=== PATIENT | male | born 1945 | race Caucasian/White ===

== ENCOUNTER 2021-09-08 14:25 | Emergency (ER) | payer MEDICARE, SELFPAY ==
[2021-09-08 14:36] VITALS: BP 125/69; PULSE 64; RESP 16; TEMP 36.9; O2SAT 99
--- NOTE | 2021-09-08 14:46 | ED.URI ---
HPI - URI/Sore Throat General Chief Complaint: Upper Respiratory Infection Stated Complaint: scratchy throat sneeze cough Time Seen by Provider: 09/08/21 14:28 Source: patient and RN notes reviewed History of Present Illness HPI Narrative: Patient is a 75-year-old male who presents the urgent care with complaints of bilateral cerumen impaction with decreased hearing. Patient also reports of a slight cough at night, and scratchy throat. Patient states that he has been using CBD oil and taking vitamin C and vitamin D for his symptoms. Denies of any recent COVID exposures. Denies any fevers. No other acute complaints. No acute distress noted. Patient aware of the plan of care. Some parts of this dictation were generated by voice recognition software and may contain typographical and/or grammatical inaccuracies. Related Data Home Medications Medication Instructions Recorded Confirmed lovastatin 40 mg PO DAILY 09/08/21 09/08/21 Allergies Allergy/AdvReac Type Severity Reaction Status Date / Time No Known Allergies Allergy Verified 09/08/21 14:34 Review of Systems Review of Systems: CONSTITUTIONAL: Denies fever, chills, or sweats. EYES: Denies visual changes, redness, or discharge. ENT: Denies rhinorrhea, congestion, sore throat, or otalgia. CARDIOVASCULAR: Denies chest pain, palpitations, or edema. RESPIRATORY: Denies cough or dyspnea. GASTROINTESTINAL: Denies abdominal pain, nausea, vomiting, or diarrhea. GENITOURINARY: Denies dysuria or hematuria. SKIN: Denies rash or itching. MUSCULOSKELETAL: Denies back pain, joint pain, or myalgia. NEUROLOGIC: Denies headache, numbness, or weakness. PSYCHIATRIC: Denies anxiety or depression. All other systems reviewed are negative, except as documented in HPI. [facility] Family History Family History Mother Diabetes mellitus, Onset Age: 87 Hypertension, Onset Age: 87 Cerebrovascular accident, Onset Age: 87 Sibling Family history of chronic obstructive pulmonary disease, Onset Age: 62 Father Family history of emphysema, Onset Age: 72 Social History Social History (Updated 12/19/20 @ 10:46 by Melony Mccauley CMA) Smoking packs per day: 1 Smoking cigarettes per day: 20.0 Years smoked: 30 Smoking pack-years: 30.00 Smoking status: Former smoker Smokeless tobacco user: chewing tobacco Smoking end date: 08/18/06 Comments At the time of my signature, I reviewed and agree with the nursing past medical, surgical, social, and family history. There is no relevant family history pertinent to the patient complaint. Exam Narrative: GENERAL: This is a well-nourished, well-developed patient, in no apparent distress. HEAD: normocephalic, atraumatic. EYES: PERRL. Sclera clear/white. Vision is grossly intact. EARS: External ears normal, unable to visualize bilateral TMs due to cerumen impaction. Hearing grossly intact. NOSE: External nose normal with no obvious nasal discharge, nares without redness, clear rhinorrhea. THROAT: Mucous membranes moist, posterior pharynx clear. NECK: Neck supple CARDIOVASCULAR: Regular rate and rhythm RESPIRATORY: Clear to auscultation. Breath sounds equal bilaterally. No wheezes, rales, or rhonchi. SKIN: warm, intact with no suspicious lesions or rash, good texture and turgor. NEURO: awake, alert, and oriented to person, place and time. There were no obvious focal neurologic abnormalities. EXTREMITIES: No clubbing, cyanosis, or edema. Course Course Level of Care: Express Care Visit Vital Signs Vital signs: Vital Signs Temperature 98.4 F 09/08/21 14:36 Pulse Rate 64 09/08/21 14:36 Respiratory Rate 16 09/08/21 14:36 Blood Pressure 125/69 09/08/21 14:36 Pulse Oximetry 99 09/08/21 14:36 Temperature 98.4 F 09/08/21 14:36 Pulse Rate 64 09/08/21 14:36 Respiratory Rate 16 09/08/21 14:36 Blood Pressure 125/69 09/08/21 14
== END 2021-09-08 15:20 | disposition home or self-care (01) ==
PROVIDERS: Emergency Provider Nurse Practitioner Family; PCP Internal Medicine
DX: H61.23 Impacted cerumen, bilateral (principal); R05.9 Cough, unspecified; Z87.891 Personal history of nicotine dependence; E78.00 Pure hypercholesterolemia, unspecified
CPT/HCPCS: 69210; 99213; G0463

== ENCOUNTER 2022-01-09 11:10 | Emergency (ER) | payer MEDICARE, SELFPAY ==
--- NOTE | 2022-01-09 11:13 | ED.WOUNDLAC ---
HPI - Wound/Laceration General Chief Complaint: Skin/Abscess/Foreign Body Stated Complaint: Left hand finger lac Time Seen by Provider: 01/09/22 11:13 Source: patient and RN notes reviewed History of Present Illness HPI narrative: Patient is a 76-year-old male who presents the urgent care with complaints of a laceration to the left index finger. Patient states that occurred on Friday and he cut it with a knife while trying to clean out the piece of plastic from a shukla. Patient has not had any intervention. States that he is concerned about the area near the knuckle it is not healing well . Patient has been keeping it covered with a bandage. Denies of any fever, nausea or vomiting. Patient is right-hand dominant. No other acute complaints. No acute distress noted. Patient aware of the plan of care. Some parts of this dictation were generated by voice recognition software and may contain typographical and/or grammatical inaccuracies. Related Data Home Medications Medication Instructions Recorded Confirmed lovastatin 40 mg tablet 40 mg PO DAILY 09/08/21 12/27/21 Allergies Allergy/AdvReac Type Severity Reaction Status Date / Time No Known Allergies Allergy Verified 12/27/21 11:12 Review of Systems Review of Systems: CONSTITUTIONAL: Denies fever, chills, or sweats. EYES: Denies visual changes, redness, or discharge. ENT: Denies rhinorrhea, congestion, sore throat, or otalgia. CARDIOVASCULAR: Denies chest pain, palpitations, or edema. RESPIRATORY: Denies cough or dyspnea. GASTROINTESTINAL: Denies abdominal pain, nausea, vomiting, or diarrhea. GENITOURINARY: Denies dysuria or hematuria. SKIN: Reports of a laceration to the left index finger MUSCULOSKELETAL: Denies back pain, joint pain, or myalgia. NEUROLOGIC: Denies headache, numbness, or weakness. All other systems reviewed are negative, except as documented in HPI. [facility] Family History Family History Mother Diabetes mellitus, Onset Age: 87 Hypertension, Onset Age: 87 Cerebrovascular accident, Onset Age: 87 Sibling Family history of chronic obstructive pulmonary disease, Onset Age: 62 Father Family history of emphysema, Onset Age: 72 Social History Social History Smoking packs per day: 1 Smoking cigarettes per day: 20.0 Years smoked: 30 Smoking pack-years: 30.00 Smoking status: Former smoker Smokeless tobacco user: chewing tobacco Smoking end date: 08/18/06 Comments At the time of my signature, I reviewed and agree with the nursing past medical, surgical, social, and family history. There is no relevant family history pertinent to the patient complaint. Exam Narrative: GENERAL: This is a well-nourished, well-developed patient, in no apparent distress. HEAD: normocephalic, atraumatic. EYES: PERRL. Sclera clear/white. Vision is grossly intact. EARS: External ears normal NOSE: External nose normal with no obvious nasal discharge, nares without redness, no rhinorrhea. THROAT: Mucous membranes moist NECK: Neck supple CARDIOVASCULAR: Regular rate and rhythm without murmurs, gallops, or rubs. RESPIRATORY: Clear to auscultation. Breath sounds equal bilaterally. No wheezes, rales, or rhonchi. SKIN: 3 to 4 cm linear laceration to the DIP of the left index finger with approximation and well-healing. NEURO: awake, alert, and oriented to person, place and time. There were no obvious focal neurologic abnormalities. EXTREMITIES: No clubbing, cyanosis, or edema. Course Course Level of Care: Express Care Visit Vital Signs Vital signs: Vital Signs Temperature 98 F 01/09/22 11:17 Pulse Rate 65 01/09/22 11:17 Respiratory Rate 16 01/09/22 11:17 Blood Pressure 142/77 H 01/09/22 11:17 Pulse Oximetry 98 01/09/22 11:17 Oxygen Delivery Room Air 01/09/22 11:17 Temperature 98 F
[2022-01-09 11:17] VITALS: BP 142/77; PULSE 65; RESP 16; TEMP 36.6; O2SAT 98
== END 2022-01-09 11:32 | disposition home or self-care (01) ==
PROVIDERS: Emergency Provider Nurse Practitioner Family; PCP Internal Medicine
DX: S61.211A Laceration without foreign body of left index finger without damage to nail, initial encounter (principal); W26.0XXA Contact with knife, initial encounter; Z87.891 Personal history of nicotine dependence; E78.00 Pure hypercholesterolemia, unspecified
CPT/HCPCS: 99212; G0463